=== PATIENT | female | born 1975 | race African-American/Black ===

== ENCOUNTER 2016-11-29 12:44 | Emergency (ER) | payer OTHER ==
[~2016-11-29] VITALS: Ht 157.5 cm; Wt 72.6 kg
--- NOTE | ~2016-11-29 | EKG ---
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 : 1975 Requested By: Adrienne Damon Order Number: [id number] MD: Sachin Raman Measurements Intervals [place] Rate: 57 P: 36 WV: 156 QRS: 55 QRSD: 84 T: -85 QT: 471 QTc: 459 Interpretive Statements Sinus rhythm Abnormal T, probable ischemia, widespread Baseline wander in lead(s) V6 No previous ECG available for comparison Electronically Signed On 11-30-2016 8:36:39 CDT by Sachin Raman [email or web address] <ELECTRONICALLY SIGNED> By: Sachin Raman MD, [facility] 11/30/16 0836 1255 1255 Sachin Raman MD, FACC /EPI
[2016-11-29] MEDS ORDERED: LIPITOR 20 MG T20 M1 PO (13:01)
[2016-11-29] MEDS ORDERED: ASPIR 8181 MG PO (13:02)
[2016-11-29 13:03] LABS: ABSOLUTE NEUTROPHILS 2.1 thou/uL (1.4-8.2); BASOPHILS 0.4 % (0.0-2.0); EOSINOPHILS 1.3 % (0.0-3.0); HEMATOCRIT 37.3 % (37.0-47.0); HEMOGLOBIN 13.1 gm/dL (12.0-15.0); MCH 33.5 pg (26.0-34.0); MCHC 35.2 g/dL (28.0-37.0); MCV 95.1 fL (80.0-100.0); PLATELET COUNT 437 thou/uL (150-400); POLYS 43.3 % (36.0-66.0); RBC 3.92 mil/uL (4.20-5.00); RDW 12.4 % (10.5-14.5); WBC 4.8 thou/uL (4.0-11.0)
[2016-11-29] MEDS ORDERED: PROTONIX40 M1 PO (13:03)
[2016-11-29] MEDS ORDERED: TOPROL XL100 MG PO (13:03)
[2016-11-29] MEDS ORDERED: PLAVIX 75 MG TA75 M1 PO (13:04)
[2016-11-29 13:05] LABS: MANUAL DIFF NO
[2016-11-29 13:12] LABS: CALCIUM 8.9 mg/dL (8.5-10.1); CREATININE 0.8 mg/dL (0.6-1.0); POTASSIUM 4.1 mmol/L (3.5-5.1)
[2016-11-29 13:24] LABS: TROPONIN-I 0.9 ng/mL (<0.04-0.07)
[2016-11-29 15:54] VITALS: BP 124/73
== END 2016-11-29 15:57 | disposition home or self-care (01) ==
LOC: ER 12:44
PROVIDERS: Emergency Medicine
DX: R07.89 Other chest pain (principal); Z79.82 Long term (current) use of aspirin

== ENCOUNTER 2017-09-03 22:51 | Inpatient (IN) | payer OTHER ==
[~2017-09-03] VITALS: Ht 157.5 cm; Wt 94.8 kg
--- NOTE | ~2017-09-03 | EKG ---
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 : 1975 Requested By: Laith Xiao Order Number: [id number] MD: Sachin Raman Measurements Intervals [place] Rate: 71 P: 36 CO: 144 QRS: 43 QRSD: 83 T: 24 QT: 379 QTc: 412 Interpretive Statements Sinus rhythm No significant abnormality Compared to ECG 02/01/2017 15:07:46 T-wave abnormality no longer present Electronically Signed On 09-06-2017 9:11:45 CDT by Sachin Raman [email or web address] <ELECTRONICALLY SIGNED> By: Sachin Raman MD, [facility] 09/06/17 0911 2258 2258 Sachin Raman MD, [facility] /EPI
--- NOTE | ~2017-09-03 | EKG ---
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
--- NOTE | ~2017-09-03 | 2DMMODE ---
[facility] [address] [place] [address] 2 D/M-MODE ECHOCARDIOGRAM Name: ASAF CANNON Room #: 211-P [facility] IN .R.#: [id number] Admission: 09/04/17 Attend Phys: Travis Hays MD Discharge: Date of : 77 Date of Service: 09/06/17 1107 Report #: [id number] THIS REPORT FOR: //name// APPROVED REPORT Study performed: 09/06/2017 07:57:52 EXAM: Comprehensive 2D, Doppler, and color-flow Echocardiogram Patient Location: Bedside Room #: 211 Status: routine BSA: 1.95 HR: 66 bpm BP: 99/48 mmHg Indications Non STEMI CAD Hypertension/HDD SOB 2D Dimensions RVDd: 32.69 mm LVEF(%): 50.51 (>50%) IVSd: 11.62 (7-11mm) LVOT Diam: 18.74 (18-24mm) LVDd: 41.04 mm PWd: 10.11 (7-11mm) Ascending Ao: 26.15 (22-36mm) LVDs: 30.63 (25-40mm) Aortic Root: 23.95 mm IVC: 9.00 mm [employer] LVEF: 50.51 % Volumes Left Atrial Volume (Systole) Single Plane 4CH: 39.78 mL Single Plane 2CH: 39.71 mL LA ESV Index: 24.00 mL/m2 Aortic Valve AoV Peak Durga.: 1.31 m/s AO Peak Gr.: 6.82 mmHg LVOT Max P.13 mmHg LVOT Max V: 1.24 m/s ANTONIO Vmax: 2.61 cm2 Mitral Valve E/A Ratio: 1.3 MV Decel. Time: 237.35 ms MV E Max Durga.: 0.74 m/s [facility] [place] [address] 2 D/M-MODE ECHOCARDIOGRAM Name: ASAF CANNON Room #: 211-P [facility] IN ..#: [id number] Admission: 09/04/17 Attend Phys: Travis Hays MD Discharge: Date of : 77 Date of Service: 09/06/17 1107 Report #: [id number] MV A Durga.: 0.58 m/s MV PHT: 68.83 ms IVRT: 103.81 ms Pulmonary Valve PV Peak Durga.: 0.85 m/s PV Peak Gr.: 2.91 mmHg Pulmonary Vein P Vein S: 0.37 m/s P Vein A: 0.19 m/s P Vein D: 0.36 m/s P Vein A Dur.: 86.5 msec P Vein S/D Ratio: 1.03 Tricuspid Valve RAP Estimate: 5.00 mmHg Left Ventricle The left ventricle is normal size. Mild concentric left ventricular hypertrophy. The left ventricular systolic function is normal. The left ventricular ejection fraction is within the normal range. LVEF is 55%. Right Ventricle The right ventricle is normal size. The right ventricular systolic function is normal. Atria The left atrium size is normal. The right atrium size is normal. Aortic Valve The aortic valve is normal in structure. No aortic regurgitation is present. There is no aortic valvular stenosis. Mitral Valve The mitral valve is normal in structure. Moderate mitral regurgitation. No evidence of mitral valve stenosis. Tricuspid Valve The tricuspid valve is normal in structure. There is no tricuspid valve regurgitation noted. Unable to assess PA pressure. Pulmonic Valve Pulmonic valve is not well visualized. Trace pulmonic regurgitation[place] [address] 2 D/M-MODE ECHOCARDIOGRAM Name: ASAF CANNON Room #: 211-P [facility] IN M.R.#: [id number] Admission: 09/04/17 Attend Phys: Travis Hays MD Discharge: Date of : 77 Date of Service: 09/06/17 1107 Report #: [id number] The aortic root is normal in size. IVC is normal in size and collapses >50% with inspiration. Pericardium There is no pericardial effusion. <Conclusion> The left ventricle is normal size. LVEF is 55%. The right ventricle is normal size. The left atrium size is normal. There is no aortic valvular stenosis. Moderate mitral regurgitation. Trace pulmonic regurgitation. IVC is normal in size and collapses >50% with inspiration. There is no pericardial effusion. <ELECTRONICALLY SIGNED> By: Cheko Huitron MD, FACC 09/06/17 1107 1107 1107 Cheko Huitron MD, FACC /INF
--- NOTE | ~2017-09-03 | EKG ---
[address] [place] [address] ELECTROCARDIOGRAM REPORT Name: ASAF CANNON Room #: 211-P ADM IN M.R.#: [id number] Admission: 09/04/17 Attend Phys: Travis Hays MD Discharge: Date of : 77 Report #: [id number] THIS REPORT FOR: //name// [facility] ED Test Date: 2017-09-04 Test Time: 00:16:18 Pat Name: ASAF CANNON Department: Room: 211 P Gender: F Rating Clerk: Jm ARMSTRONG : 1975 Requested By: Maine Saunders Order Number: [id number] MD: Sachin Raman Measurements Intervals [place] Rate: 64 P: 34 [place]: 141 QRS: 35 QRSD: 86 T: -8 QT: 412 QTc: 425 Interpretive Statements Sinus rhythm Borderline T wave abnormalities Compared to ECG 02/01/2017 15:07:46 Nonspecific T wave abnormality is now present Electronically Signed On 09-06-2017 9:12:51 CDT by Sachin Raman [email or web address] <ELECTRONICALLY SIGNED> By: Sachin Raman MD, [facility] 09/06/17911 Sachin Raman MD, [facility] /EPI
--- NOTE | ~2017-09-03 | EKG ---
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: GONZALO : 1975 Requested By: Jeannette Slade Order Number: [id number] MD: Sachin Raman Measurements Intervals [place] Rate: 82 P: 40 CT: 155 QRS: 76 QRSD: 80 T: -2 QT: 366 QTc: 428 Interpretive Statements Sinus rhythm Borderline T wave abnormalities Baseline wander in lead(s) V3 Compared to ECG 02/01/2017 15:07:46 No significant changes Electronically Signed On 09-06-2017 17:11:22 CDT by Sachin Raman [email or web address] <ELECTRONICALLY SIGNED> By: Sachin Raman MD, [facility] 09/06/17 1711 0851 0851 Sachin Raman MD, [facility] /EPI
--- NOTE | ~2017-09-03 | EKG ---
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 : 1975 Requested By: Cheko Huitron Order Number: [id number] MD: Sachin Raman Measurements Intervals [place] Rate: 61 P: 41 OR: 153 QRS: 46 QRSD: 85 T: 6 QT: 422 QTc: 425 Interpretive Statements Sinus rhythm No significant abnormality Compared to ECG 02/01/2017 15:07:46 T-wave abnormality no longer present Electronically Signed On 09-06-2017 16:49:09 CDT by Sachin Raman [email or web address] <ELECTRONICALLY SIGNED> By: Sachin Raman MD, [facility] 09/06/17 1649 1220 1220 Sachin Raman MD, [facility] /EPI
--- NOTE | ~2017-09-03 | CATHLAB ---
[facility] [address] [place] [address] INVASIVE PROCEDURE REPORT Name: ASAF CANNON Room #: 211-P [facility] IN [facility]#: [id number] Admission: 09/04/17 Attend Phys: Michelle Alonso Discharge: Date of : 77 Date of Service: 09/04/17 1155 Report #: [id number] THIS REPORT FOR: //name// APPROVED REPORT Study performed: 09/04/2017 09:14:54 Patient Details Patient Status: In-Patient Room #: The patient is a 42 year-old female Event Personnel Cheko Huitron Disc Pad Grinding Machine Feeder, Myra Mccauley Mahmood, Amber Monitor, Duncan Lund RN Procedures Performed Art Access - R femoral artery* 90564 Initial Mod Sed Same Phys/QHP Gr5y 228945 46784 Mod Sed Same Phys/QHP Ea 653556 Left Heart Cath w/or w/o Coronaries 1042184 C PTCA Single Vessel LAD 6328203 PCISINGLE Hemostasis w/ Mynx Abdominal Aortagram Indication Non-STEMI Procedure Narrative The patient was brought urgently to the Cardiac Catheterization Laboratory and was prepped and draped in a sterile manner. The Right Groin^ was infiltrated with 1% Lidocaine subcutaneous anesthesia. A PINNACLE 6FR Sheath #[id number] sheath was inserted into the RFA^. Coronary angiography was performed using coronary diagnostic catheters. The right coronary system was accessed and visualized with a 3DRC catheter. The left coronary system was accessed and visualized with a JL 4 catheter. The left ventricle was accessed and visualized with a Pigtail catheter. Left ventriculogram was performed in PRIETO projection. An aortogram of the abdominal aorta was performed. Closure device was deployed with a 6 Fr Mynx. The patient tolerated the procedure well and there were no complications associated with the procedure. There was no hematoma. Intraoperative Conscious Sedation Sedation start time: 10:16 Case end Time: 11:06 Fentanyl 100 mcg Versed 2 mg [facility] [address] [place] [address] INVASIVE PROCEDURE REPORT Name: ASAF CANNON Room #: 211-P [facility]#: [id number] Admission: 09/04/17 Attend Phys: Michelle Alonso Discharge: Date of : 77 Date of Service: 09/04/17 1155 Report #: [id number] Fluoro Time: 8.39 minutes Dose: DAP 02626.90 cGycm2 1573 mGy Contrast Type and Amount: Visipaque 210 ml Hemodynamics The aortic pressure is 141/67 mmHg with a mean of 96 mmHg. The left ventricular pressure is 130/7 mmHg with a mean of mmHg. The left ventricular end diastolic pressure is 28 mmHg. PCI Technique Lesion Percutaneous coronary intervention was performed on the mid left anterior descending artery segment. A LAUNCHER 6FR EBU 3.5 #[id number] Guide Catheter was used to engage the ostium. A Luge Wire .014 x 182CM #[id number] Interventional Guidewire was used to cross the lesion. BALLOON DILATION A Balloon catheter Sprinter OTW 2.5 x 20 #[id number] was inserted and inflated up to 14.00atm for 41seconds. Additional Inflation: 20.00atm for 48seconds. POST STENT DEPLOYMENT BALLOON DILATION A Balloon catheter Euphora NC RX 3.0 x 15 #[id number] was inserted and inflated up to 20.00atm for 32seconds. Additional Inflation: 20.00atm for 27seconds. Conclusion #1 successful PTCA of the in-stent restenosis subtotaled distal LAD stent placed November 2016. Eventual postdilatation with a 30 by 15 noncompliant balloon healed in 0% residual and ANYA grade 3 flow. #2 left main is long and free of disease giving rise to LAD and circumflex #3 the circumflex OM is a dominant system. It is moderately diseased throughout the OM and distal circumflex system. No high-grade lesion for intervention. #4 small nondominant right coronary artery #5 normal left ventricular size with an anterior inferior apical hypokinetic segment EF near normal 50% range severe mitral regurgitation with left atrial enlargement is noted we'll evaluate with echo. Does not appear to be catheter induced. #6 abdominal aortography abdominal aorta intact single bilateral renal arteries and iliac system widely patent Indications and plan: Patient to proceed to CCU to follow post PTCA protocol. Heparin and Integrilin were utilized for this procedure. We'll switch antiplatelet therapy T to generic Effient. Continue with [address] [address] INVASIVE PROCEDURE REPORT Name: ASAF CANNON Room #: 211-P [facility] IN M.R.#: [id number] Admission: 09/04/17 Attend Phys: Michelle Marmolejo Celeste Discharge: Date of : 77 Date of Service: 09/04/17 1155 Report #: [id number] aspirin. Patient is HIV positive will be better served and safest with Livalo 4 mg as statin of choice here continue other medications. We'll evaluate the mitral regurgitation flow with echo Doppler stable and pain-free transfer to CCU <ELECTRONICALLY SIGNED> By: Cheko Huitron MD, FACC 09/04/17 1155 1155 1155 Cheko Huitron MD, FACC /INF
[~2017-09-03 22:51] MED LIST: ASPIR 8181 MG PO; LIPITOR 20 MG T20 M1 PO; PLAVIX 75 MG TA75 M1 PO; PROTONIX40 M1 PO; TOPROL XL100 MG PO; ULTRAM 50MG TAB50 MG PO
[2017-09-03 22:57] VITALS: BP 150/89
[2017-09-03 23:22] LABS: ABSOLUTE NEUTROPHILS 1.6 thou/uL (1.4-8.2); BASOPHILS 0.1 % (0.0-2.0); EOSINOPHILS 1.4 % (0.0-3.0); HEMATOCRIT 38.4 % (37.0-47.0); HEMOGLOBIN 13.5 gm/dL (12.0-15.0); LYMPHOCYTES 53.9 % (24.0-44.0); MCH 32.4 pg (26.0-34.0); MCHC 35.3 g/dL (28.0-37.0); MCV 91.9 fL (80.0-100.0); MONOCYTES 8.2 % (1.0-8.0); PLATELET COUNT 289 thou/uL (150-400); POLYS 36.4 % (36.0-66.0); RBC 4.18 mil/uL (4.20-5.00); RDW 13.1 % (10.5-14.5); WBC 4.5 thou/uL (4.0-11.0)
[2017-09-03 23:34] LABS: CALCIUM 8.5 mg/dL (8.5-10.1); CREATININE 1.3 mg/dL (0.6-1.0); POTASSIUM 4.2 mmol/L (3.5-5.1)
[2017-09-03 23:42] LABS: ALBUMIN 3.5 g/dL (3.4-5.0); TOTAL BILIRUBIN 0.4 mg/dL (<0.1-1.0); TOTAL PROTEIN 7.3 g/dL (6.4-8.2)
[2017-09-03 23:44] LABS: TROPONIN-I 4.47 ng/mL (<0.06)
[2017-09-03] MEDS ORDERED: CARVEDILOL3.125 MG PO (23:52)
[2017-09-04] VITALS (7 sets, daily range): BP systolic 115–162; BP diastolic 65–93
[2017-09-04] MEDS ORDERED: KALETRA 200-501 EACH PO (03:14)
[2017-09-04] MEDS ORDERED: TRUVADA 200 MG1 EACH PO (03:14)
[2017-09-04] MEDS ORDERED: PRAVACHOL40 MG PO (03:14)
[2017-09-04 06:15] LABS: CHOLESTEROL 161 mg/dL (<200); HDL CHOLESTEROL 41 mg/dL (>40); LDL CHOLESTEROL 110 mg/dL (<100); TC:HDL 3.9 Ratio (Not establshd); TRIGLYCERIDE 52 mg/dL (<150); VLDL 10 mg/dL (<40)
[2017-09-04 09:44] LABS: PROTIME 10.2 Seconds (9.3-11.4)
[2017-09-04 13:06] LABS: AMP/METHAMP Negative (Negative); BARBITURATES Negative (Negative); BENZODIAZEPINES POSITIVE (Negative); COCAINE Negative (Negative); METHADONE Negative (Negative); OPIATES POSITIVE (Negative); PCP Negative (Negative)
[2017-09-05 03:20] VITALS: BP 89/55
[2017-09-05 05:54] LABS: HEMATOCRIT 35.3 % (37.0-47.0); HEMOGLOBIN 12.8 gm/dL (12.0-15.0); MCH 32.9 pg (26.0-34.0); MCHC 36.1 g/dL (28.0-37.0); RBC 3.88 mil/uL (4.20-5.00); RDW 13.2 % (10.5-14.5); WBC 5.2 thou/uL (4.0-11.0)
[2017-09-05 06:15] LABS: CALCIUM 8.1 mg/dL (8.5-10.1); CREATININE 0.9 mg/dL (0.6-1.0)
[2017-09-05 07:26] VITALS: BP 96/54
[2017-09-05 11:28] VITALS: BP 101/56
[2017-09-05 15:39] VITALS: BP 130/74
[2017-09-05 19:06] VITALS: BP 100/65
[2017-09-06 00:11] VITALS: BP 114/70
[2017-09-06 04:30] VITALS: BP 95/50
[2017-09-06 07:29] VITALS: BP 99/48
[2017-09-06] MEDS ORDERED: ASPIRIN325 PO (08:23)
[2017-09-06] MEDS ORDERED: EFFIENT10 MG PO (08:23)
[2017-09-06] MEDS ORDERED: COZAAR 25 MG TA25 M1 PO (08:23)
[2017-09-06] MEDS ORDERED: LIVALO4 MG PO (09:08)
[2017-09-06] MEDS ORDERED: PRAVACHOL40 MG PO (09:20)
[2017-09-06 11:42] VITALS: BP 93/48
[2017-09-06 14:07] VITALS: BP 93/48
== END 2017-09-06 16:27 | disposition home or self-care (01) | DRG 250 ==
LOC: ER 22:51 → 2N 09-04 00:19 → EROBS 09-04 00:19 → 2N 09-04 01:16 → ENTRNSPT 09-06 16:21 → 2N 09-06 16:27
PROVIDERS: Emergency Medicine; Internal Medicine Cardiovascular Disease; Nurse Practitioner Acute Care
PROC: 02703ZZ Dilation of Coronary Artery, One Artery, Percutaneous Approach (ICD-10-PCS; principal; 2017-09-04)
PROC: B215YZZ Fluoroscopy of Left Heart using Other Contrast (ICD-10-PCS; principal; 2017-09-04)
PROC: B410YZZ Fluoroscopy of Abdominal Aorta using Other Contrast (ICD-10-PCS; principal; 2017-09-04)
PROC: 4A023N7 Measurement of Cardiac Sampling and Pressure, Left Heart, Percutaneous Approach (ICD-10-PCS; principal; 2017-09-04)
PROC: B211YZZ Fluoroscopy of Multiple Coronary Arteries using Other Contrast (ICD-10-PCS; principal; 2017-09-04)
DX: T82.855A Stenosis of coronary artery stent, initial encounter (principal); I21.4 Non-ST elevation (NSTEMI) myocardial infarction; I10 Essential (primary) hypertension; E78.5 Hyperlipidemia, unspecified; Z60.2 Problems related to living alone; I25.10 Atherosclerotic heart disease of native coronary artery without angina pectoris; E78.00 Pure hypercholesterolemia, unspecified; I34.0 Nonrheumatic mitral (valve) insufficiency; I25.2 Old myocardial infarction; Z87.891 Personal history of nicotine dependence; Z82.49 Family history of ischemic heart disease and other diseases of the circulatory system; Z79.82 Long term (current) use of aspirin; Z79.899 Other long term (current) drug therapy
CPT/HCPCS: 10081